=== PATIENT | female | born 1990 | race Caucasian/White ===

== ENCOUNTER 2017-02-11 15:15 | Outpatient (CLI) | payer MEDICAID ==
[~2017-02-11 15:15] MED LIST: NO HOME MEDS; PREN1COM12 PO
[2017-02-11 15:20] VITALS: BP 103/64
== END 2017-02-11 16:00 | disposition home or self-care (01) ==
LOC: ORTHO 15:15
PROVIDERS: ATTEND Nurse Practitioner Family
DX: S92.415D Nondisplaced fracture of proximal phalanx of left great toe, subsequent encounter for fracture with routine healing (principal); W22.09XD Striking against other stationary object, subsequent encounter; Y92.096 Garden or yard of other non-institutional residence as the place of occurrence of the external cause
CPT/HCPCS: 99213

== ENCOUNTER 2021-11-25 19:29 | Emergency (ER) | payer MEDICAID ==
[~2021-11-25] VITALS: Ht 160 cm; Wt 56.8 kg
[~2021-11-25 19:29] MED LIST changes: +PROM12.512 PO
[2021-11-25 19:35] VITALS: BP 118/65
[2021-11-25] MEDS ORDERED: normal saline 1000ML IV soln IVB ONE (19:40)
[2021-11-25] MEDS ORDERED: HYDROcodone/acetaminophen 10/325mg tab PO ONE ×2 (19:40→21:55)
[2021-11-25] MEDS ORDERED: ondansetron/PF 4mg/2ml inj IV ONE (19:40)
[2021-11-25] MEDS ORDERED: ketorolac trometh. 30mg/ml inj. IV ONE (19:40)
[2021-11-25 20:18] LABS: BASOPHILS # (AUTO) 0.1 X10'3 (0-0.2); BASOPHILS % (AUTO) 0.6 % (0-1); EOSINOPHILS # (AUTO) 0.1 X10'3 (0-0.9); EOSINOPHILS % (AUTO) 1.1 % (0-6); HEMATOCRIT 41.9 % (35.0-45.0); HEMOGLOBIN 14.4 g/dl (12.0-16.0); LYMPHOCYTES # (AUTO) 2.1 X10'3 (1.1-4.8); LYMPHOCYTES % (AUTO) 16.9 % (21-51); MEAN CORPUSCULAR HEMOGLOBIN 32.7 PG (27.0-31.0); MEAN CORPUSCULAR HGB CONC 34.3 g/dL (33.0-36.5); MEAN CORPUSCULAR VOLUME 95.4 FL (78-98); MEAN PLATELET VOLUME 10.1 FL (7.4-10.4); MONOCYTES # (AUTO) 0.9 X10'3 (0-0.9); MONOCYTES % (AUTO) 6.9 % (2-12); NEUTROPHILS # (AUTO) 9.2 X10'3 (1.8-7.7); NEUTROPHILS % (AUTO) 74.5 % (42-75); PLATELET COUNT 272 X10'3 (140-440); RED BLOOD COUNT 4.39 X10'6 (4.20-5.60); RED CELL DISTRIBUTION WIDTH 13.3 % (11.5-14.5); WHITE BLOOD COUNT 12.3 X10'3 (4.5-11.0)
[2021-11-25 20:32] LABS: ALANINE AMINOTRANSFERASE 18 U/L (12-78); ALBUMIN 4.2 G/DL (3.4-5.0); ALBUMIN/GLOBULIN RATIO 1.2 (1.1-1.5); ALKALINE PHOSPHATASE 49 IU/L (46-116); ANION GAP 13 (8-16); ASPARTATE AMINO TRANSFERASE 15 U/L (10-37); BILIRUBIN,TOTAL 0.3 MG/DL (0.1-1.0); BLOOD UREA NITROGEN 11 MG/DL (7-18); BUN/CREATININE RATIO 11.2 (6.6-38.0); CALCIUM 9.7 MG/DL (8.5-10.1); CHLORIDE 105 MMOL/L (99-107); CREATININE 0.98 MG/DL (0.40-0.90); GLUCOSE 139 MG/DL (70-104); POTASSIUM 3.4 MMOL/L (3.5-5.1); SODIUM 139 MMOL/L (135-145); TOTAL CARBON DIOXIDE 20.8 MMOL/L (24-32); TOTAL PROTEIN 7.7 G/DL (6.4-8.2); eGFR 66 ML/MIN
[2021-11-25] MEDS: tamsulosin 0.4mg capsule PO SCH (21:00)
[2021-11-25] MEDS ORDERED: fentaNYL/PF 50MCG/1 ML 2ML syringe IV ONE (21:55)
[2021-11-25 22:14] LABS: CLARITY,URINE CLOUDY (Clear); COLOR,URINE YELLOW (Yellow); GLUCOSE, URINE NEGATIVE (Neg); KETONES,URINE 40 mg/dl (Neg); LEUKOCYTE ESTERASE ,URINE NEGATIVE (Neg); NITRITES, URINE NEGATIVE (Neg); OCCULT BLOOD,URINE LARGE (Neg); PH,URINE 8.5 (4.8-8.0); PROTEIN,URINE TRACE mg/dl (Neg); UROBILINOGEN,URINE 0.2 E.U/dL (0.2-1.0)
[2021-11-25 22:20] LABS: UA COLLECTION TYPE CLN CATCH MIDSTREAM
[2021-11-25 22:21] LABS: AMORPHOUS PHOSPHATES 2+; BACTERIA,URINE FEW /HPF (Neg); CAL OXALATE CRYSTALS FEW /HPF (NEGATIVE); SQUAMOUS EPITHELIAL CELL,UR FEW /LPF (FEW); WBC,URINE 0-4 /HPF (0-4)
[2021-11-25] MEDS ORDERED: NAPR-1154 PO (23:40)
[2021-11-25] MEDS ORDERED: ONDA4TAB12 PO (23:40)
[2021-11-25] MEDS ORDERED: HYDR-3965 PO (23:40)
[2021-11-25] MEDS ORDERED: FLO0.4C PO (23:40)
== END 2021-11-25 22:22 | disposition home or self-care (01) ==
LOC: ER 19:30
DX: N20.0 Calculus of kidney (principal); N13.30 Unspecified hydronephrosis; R10.84 Generalized abdominal pain; R11.2 Nausea with vomiting, unspecified; F12.90 Cannabis use, unspecified, uncomplicated; Z98.890 Other specified postprocedural states; Z79.899 Other long term (current) drug therapy
CPT/HCPCS: 36415; 74176; 80053; 81001; 85025; 96361; 96374; 96375; 99284; J1885; J2405; J3010; J7030

== ENCOUNTER 2021-12-07 07:59 | Inpatient (IN) | payer MEDICAID ==
[~2021-12-07] VITALS: Ht 162.6 cm; Wt 58.2 kg
[~2021-12-07 07:59] MED LIST changes: +FLO0.4C PO; +NAPR-1154 PO; +ONDA4TAB12 PO
[2021-12-07] MEDS ORDERED: HYDROcodone/acetaminophen 5mg/325mg tablet PO ONE (09:45)
[2021-12-07 12:14] LABS: BASOPHILS # (AUTO) 0.1 X10'3 (0-0.2); BASOPHILS % (AUTO) 0.5 % (0-1); EOSINOPHILS # (AUTO) 0.1 X10'3 (0-0.9); EOSINOPHILS % (AUTO) 0.5 % (0-6); HEMOGLOBIN 13.3 g/dl (12.0-16.0); LYMPHOCYTES # (AUTO) 1.6 X10'3 (1.1-4.8); MEAN CORPUSCULAR HEMOGLOBIN 32.6 PG (27.0-31.0); MEAN CORPUSCULAR HGB CONC 34.2 g/dL (33.0-36.5); MEAN CORPUSCULAR VOLUME 95.5 FL (78-98); MONOCYTES # (AUTO) 1.3 X10'3 (0-0.9); MONOCYTES % (AUTO) 7.4 % (2-12); NEUTROPHILS # (AUTO) 14.5 X10'3 (1.8-7.7); NEUTROPHILS % (AUTO) 82.6 % (42-75); PLATELET COUNT 345 X10'3 (140-440); RED BLOOD COUNT 4.09 X10'6 (4.20-5.60); RED CELL DISTRIBUTION WIDTH 13.4 % (11.5-14.5); WHITE BLOOD COUNT 17.6 X10'3 (4.5-11.0)
[2021-12-07 12:29] LABS: ALANINE AMINOTRANSFERASE 18 U/L (12-78); ALBUMIN 3.5 G/DL (3.4-5.0); ALBUMIN/GLOBULIN RATIO 0.8 (1.1-1.5); ALKALINE PHOSPHATASE 57 IU/L (46-116); ANION GAP 9 (8-16); ASPARTATE AMINO TRANSFERASE 12 U/L (10-37); BILIRUBIN,TOTAL 0.3 MG/DL (0.1-1.0); BLOOD UREA NITROGEN 7 MG/DL (7-18); BUN/CREATININE RATIO 9.1 (6.6-38.0); CALCIUM 8.9 MG/DL (8.5-10.1); CHLORIDE 105 MMOL/L (99-107); CREATININE 0.77 MG/DL (0.40-0.90); GLUCOSE 97 MG/DL (70-104); SODIUM 140 MMOL/L (135-145); TOTAL CARBON DIOXIDE 25.6 MMOL/L (24-32); TOTAL PROTEIN 7.7 G/DL (6.4-8.2); eGFR 87 ML/MIN
[2021-12-07] MEDS ORDERED: vancomycin/NS 1 GM ADD-VANTAGE 250 ML IV ONE (12:55)
[2021-12-07] MEDS ORDERED: SULF1TAB45 PO (13:11)
[2021-12-07 13:49] LABS: HCG SERUM QL NEGATIVE
[2021-12-07] MEDS ORDERED: LIDOcaine 1% (10mg/ml) 2ml vial ONE (14:08)
[2021-12-07] MEDS ORDERED: POTASSIUM BICARB 20meq eff tab 20 MEQ TABLET.EFF PO PRN ×2 (14:10)
[2021-12-07] MEDS ORDERED: mag hydrox/Alum hydrox/simeth 30ml oral suspension PO PRN (14:10)
[2021-12-07] MEDS ORDERED: potassium CL 10mEq/100ml bag 100 ML IV PRN (14:10)
[2021-12-07] MEDS ORDERED: HYDROcodone/acetaminophen 10/325mg tab PO PRN (14:10)
[2021-12-07] MEDS ORDERED: magnesium hydroxide 30ml (MOM) UD suspension PO PRN (14:10)
[2021-12-07] MEDS ORDERED: magnesium 4gm in 100ml NS 100 ML IV PRN (14:10)
[2021-12-07] MEDS ORDERED: acetaminophen 325mg tablet PO PRN ×2 (14:10)
[2021-12-07] MEDS ORDERED: morphine 2 MG/ML inj. syringe IV PRN ×2 (14:10)
[2021-12-07] MEDS ORDERED: ondansetron/PF 4mg/2ml inj IV PRN (14:10)
[2021-12-07] MEDS ORDERED: normal saline 1000ml 1,000 ML IV SCH (14:10)
[2021-12-07] MEDS ORDERED: HYDROcodone/acetaminophen 5mg/325mg tablet PO PRN (14:10)
[2021-12-07] MEDS ORDERED: magnesium 2GM in 50ml NS 50 ML IV PRN (14:10)
[2021-12-07 14:14] VITALS: BP 86/57
[2021-12-07] MEDS ORDERED: fentaNYL/PF 50MCG/1 ML 2ML syringe ONE (14:32)
[2021-12-07 14:44] VITALS: BP 99/59
[2021-12-07] MEDS ORDERED: vancomycin/NS 1 GM ADD-VANTAGE 250 ML IV SCH ×2 (15:00→15:06)
[2021-12-07] MEDS ORDERED: piperacillin/tazo 4.5gm/100ml 100 ML IV SCH (16:00)
[2021-12-07 16:24] VITALS: BP 137/72
--- NOTE | 2021-12-07 19:41 | NUR ---
PAGER ID: [phone] MESSAGE: Patient in ER room 10 has been admitted, and wants to leave AMA. Charleen Valle
[2021-12-07] MEDS ORDERED: K and/or MAG REPLACEMENT MC SCH (20:00)
[2021-12-07] MEDS ORDERED: docusate sod 100mg capsule PO SCH (20:00)
--- NOTE | 2021-12-07 20:15 | NUR ---
Pt requesting to leave AMA. This RN grabbed paperwork for her. Magu at bedside and aware. Pt will be seeking care at another hospital
--- NOTE | 2021-12-07 20:18 | NUR ---
PAGER ID: [phone] MESSAGE: Patient in ER room 10 is leaving AMA and going to [facility]. I need to you to fill out the AMA form and sign. Sandra MONTEZ [phone]
--- NOTE | 2021-12-07 21:03 | NUR ---
PT. LEFT AMA FROM THE ER AFTER ADMISSION Addendum: 12/07/21 at 2104 by Dione Lawler RN Amended: Links added.
[2021-12-08] MEDS ORDERED: nicotine 14mg patch - 24hr TD SCH (08:00)
[2021-12-09] MEDS ORDERED: VANCOMYCIN LEVEL IV ONE (02:30)
== END 2021-12-07 20:20 | disposition left against medical advice (07) | DRG 385 ==
LOC: ER 07:59 → ED HOLD 14:13
PROVIDERS: ADMIT Family Medicine; ATTEND Family Medicine
PROC: 0H9T3ZZ Drainage of Right Breast, Percutaneous Approach (ICD-10-PCS; principal; 2021-12-07)
DX: N61.1 Abscess of the breast and nipple (principal); F12.90 Cannabis use, unspecified, uncomplicated; F17.210 Nicotine dependence, cigarettes, uncomplicated; Z20.822 Contact with and (suspected) exposure to COVID-19; Z53.29 Procedure and treatment not carried out because of patient's decision for other reasons; Z83.3 Family history of diabetes mellitus; Z87.442 Personal history of urinary calculi; Z79.899 Other long term (current) drug therapy; Z71.6 Tobacco abuse counseling
CPT/HCPCS: 10030; 36415; 71045; 76642; 76942; 80053; 83605; 84145; 84703; 85025; 87040; 87070; 87077; 87186; 87811; 99285; G0378; J2270; J2543; J3010; J3490; J7030

== ENCOUNTER 2023-02-03 17:53 | Emergency (ER) | payer MEDICAID, SELFPAY ==
[~2023-02-03 17:53] MED LIST changes: -FLO0.4C PO; -NAPR-1154 PO; -NO HOME MEDS; -ONDA4TAB12 PO; -PREN1COM12 PO; -PROM12.512 PO; +SULF1TAB45 PO
== END 2023-02-03 23:12 | disposition left against medical advice (07) ==
LOC: ER 17:54
DX: Z00.8 Encounter for other general examination (principal); Z53.21 Procedure and treatment not carried out due to patient leaving prior to being seen by health care provider

== ENCOUNTER 2024-06-15 18:49 | Emergency (ER) | payer MEDICAID, OTHER ==
[~2024-06-15] VITALS: Ht 162.6 cm; Wt 62.7 kg
[2024-06-15 20:25] VITALS: BP 111/72; PULSE 80; RESP 20; TEMP 98.6; O2SAT 99
== END 2024-06-15 20:26 | disposition home or self-care (01) ==
LOC: ER 18:49
DX: M23.91 Unspecified internal derangement of right knee (principal); F12.90 Cannabis use, unspecified, uncomplicated
CPT/HCPCS: 73564; 99283; A6449